=== PATIENT | female | born 1950 | race Caucasian/White ===

== ENCOUNTER 2025-09-23 05:54 | Inpatient (IN) | payer MEDICARE, SELFPAY ==
[2025-09-22 20:21] VITALS: BP 167/91
--- NOTE | 2025-09-22 22:28 | ED.GENMED ---
History of Present Illness
General
Chief Complaint: Abdominal Symptoms
Source: patient
Time Seen by Provider: 09/22/25 22:10
History of Present Illness
History of Present Illness:
75-year-old female presents to the emergency room complaining of abdominal pain. Patient is visiting the area from [place]. Patient has a complicated past medical history chronic pancreatitis which is idiopathic. Patient recently had an
operation at the [facility] to treat her pancreatitis. She is unsure of the exact nature of the procedure. He began having pain early this morning. The pain has increased in severity through the course of the day. It is similar to what she
is experience with pancreatitis in the past. She had multiple episodes of nausea vomiting. Patient also has had significant abdominal surgery including colectomy end ileostomy. She has had abdominal reconstructive surgery in repair of multiple
abdominal wall hernias. She has also had pancreatic stents in the past. Patient has been unable to tolerate any oral intake. No fever or chills. She also recently was advised that she should self catheterize due to urinary retention at times.
She has not received the supplies to start this yet.
Patient takes metformin, pancreatic enzyme, Prilosec, Lyrica and Zoloft.
Phy Exam
Physical Exam
Physical Exam:
General: Awake, Alert, Oriented X3. Appears uncomfortable
Vitals: Mildly tachycardic
Head: Atraumatic
Eyes: Pupils equal, EOMI
Throat: Airway intact, no exudates, dry mucosa
Neck: Trachea midline
Lungs: Clear and equal b/l
Heart: Regular rate, no murmurs
Abd: Soft, diffusely tender but most pronounced in the upper abdomen, ileostomy noted without any output noted in the bag, No pulsatile mass
Neuro: nonfocal
Skin: Warm, dry, no rash
Extremities: pulses equal b/l, no edema
Sepsis
Sepsis Screening
Sepsis Assessment: Severe Sepsis
Sepsis Screening: Lactate >2mmol/L
Sepsis Screen
Sepsis Screen: Severe Sepsis
Date: 09/23/25
Time: 05:34
Course
Orders/Labs/Results
Orders:
Orders
09/22/25 20:26
IV Insert/Care/Rem.- Treatment PRN
09/22/25 22:27
Bladder Scan- Treatment ONCE
HYDROmorphone [Dilaudid] 0.5 mg IV NOW STA
Iohexol [Omnipaque] See Protocol PO NOW STA
Lactated Ringers [Lr] 1,000 ml IV BOLUS
Ondansetron Injectable [Zofran] 4 mg IV NOW STA
09/22/25 22:33
Complete Blood Count/With Diff Urgent
Comprehensive Metabolic Panel Urgent
Lactate Level [Lactic Acid] Urgent
Lipase Urgent
09/23/25
CT Abd/pel W Iv And Oral Contr Urgent
Reason For Exam: abdominal pain, n/v
CR Abdomen - 1 View Urgent
Reason For Exam: LEFT SIDE STENT PLACEMENT
RF Fluoroscopy, C-arm Urgent
09/23/25 01:00
HYDROmorphone [Dilaudid] 0.5 mg IV NOW STA
09/23/25 02:20
Urinalysis Reflex To Culture Urgent
Date Specimen was Collected: 09/23/25
Time Specimen was Collected: 02:03
Urine Microscopic Reflex Cult Urgent
Urine Culture Urgent
BA Source: U
Specimen Description:
Date Specimen was Collected: 09/23/25
Time Specimen was Collected: 02:03
09/23/25 03:23
CefTRIAXone [Rocephin] 2,000 mg IV NOW STA
09/23/25 03:28
Sterile Water [Sterile Water For Injection] 20 ml .ROUTE .STK-MED
09/23/25 03:31
Lactated Ringers [Lr] 1,500 ml IV BOLUS
09/23/25 04:05
Gentamicin Sulfate [Gentamicin] 170 mg 0.9% Sodium Chloride [Nss] 50 ml IV NOW
09/23/25 04:07
Dexamethasone Sod Phosphate [Decadron] 20 mg .ROUTE .STK-MED ONE
Lidocaine 2% Mpf [Xylocaine Mpf 2%] 100 mg .ROUTE .STK-MED ONE
Ondansetron Injectable [Zofran] 4 mg .ROUTE .STK-MED ONE
Propofol [Diprivan] 20 ml .ROUTE .STK-MED
09/23/25 04:09
Lactate Level [Lactic Acid] Urgent
09/23/25 04:10
Sequential Compression Device [Pneumatic Compression Sleeves] As Directed
Type: Knee high
Surgical Procedure As Directed
Surgical Procedure: cysto, left ureteral stenting
Teds [Anti-embolism (CATA) Hose] As Directed
Type: Thigh high
DX Deep Vein Thrombosis Video Routine
09/23/25 04:15
Admit/Transfer Patient As Directed
Co-Sign Provider:
Level of Care: Inpatient admission
Assign to:: IMU- Intermediate Care
Physician / Group: [facility]
Diagnosis: complicated pyelonephritis, infected obstructing stone
Reason for Hospitalization: complicated pyelonephritis, infected obstructing stone
Expected length of stay greater than two midnights?: Yes
ELOS- Estimated Length of Stay in days: 2
I certify the patient meets the requirements for IP care: Yes
PRN Pain Medication Management As Directed
May give lesser potent ordered pain med per pt: Yes
preference::
Protocol:: Medication orders for pain may be administered in a
manner that supports deferring to patient preference
when the pt is:
- Requesting an ordered lesser potent pain medication.
Least to most potent pain medications are defined
as: acetaminophen < NSAID < tramadol < opioids
(morphine, oxycodone, hydromorphone).
- Requesting a lesser dose of the same medication IF
ORDERED.
- Requesting a less intrusive route of administration
if both routes are prescribed by the provider (PO <
IV).
09/23/25 04:16
Code Status As Directed
Resuscitation Status: Full Code
09/23/25 04:43
Fentanyl Citrate/Pf [Sublimaze] 25 mcg IV [id number] PRN
HYDROmorphone [Dilaudid] 0.25 mg IV [id number] PRN
HYDROmorphone [Dilaudid] 0.5 mg IV [id number] PRN
Ondansetron Injectable [Zofran] 4 mg IV PACU-ONCEPRN PRN
Notify MD As Directed
Notify physician if: for SDS patients with known or suspected sleep obstructive sleep apnea, monitor in the
PACU.
Notify MD for any apneic/desaturation episodes
O2 Therapy [RESP] Urgent
Titrate/Wean O2 to maintain O2 sat greater than (%): 92
Special Instructions: -Provide supplemental oxygen to achieve O2 sat of 92% or greater.
-After 15 min, may wean O2 and discontinue if patient is able to maintain O2 sat of 92%
or greater during recovery period.
If patient is a discharge home, without oxygen therapy, notify anestheiologist if
unable to maintain O2 SAT of 92% or greater on room air for MD clearance.
09/23/25 04:45
Normosol (Mult Electrolytes) [Normosol-R/Plasmalyte-A] 1,000 ml IV PER PROTOCOL
09/23/25 04:52
Fentanyl Citrate/Pf [Sublimaze] 100 mcg .ROUTE .[facility]-MED ONE
09/23/25 05:11
Estrella Catheter [Catheter- Indwelling] As Directed
Reason for insertion: I&O's Critical Care
Assess insertion reason daily.Remove if no longer applicable: Yes
09/23/25 Breakfast
Regular
Abnormal Lab Results
09/22/25 09/23/25 09/23/25
22:33 02:20 04:09
WBC 19.8 H 10^3/uL
(4.8-10.8)
Abs Immat Gran (auto) 0.1 H 10^3/uL
(0-0.05)
Absolute Neuts (auto) 17.6 H 10^3/uL
(1.4-6.5)
Absolute Lymphs (auto) 0.9 L 10^3/uL
(1.2-3.4)
Absolute Monos (auto) 1.1 H 10^3/uL
(0.1-0.6)
Neutrophils % 89.1 H %
(42.2-75.2)
Lymphocytes % 4.6 L %
(20.5-51.1)
Sodium 130 L mmol/L
(135-145)
Carbon Dioxide 18 L mmol/L
(22-30)
BUN 31 H mg/dl
(7-17)
Creatinine 1.1 H mg/dL
(0.6-1.0)
Glucose 196 H mg/dl
(70-99)
Lactic Acid 3.1 H mmol/L 2.7 H mmol/L
(0.7-2.0) (0.7-2.0)
Calcium 11.8 H mg/dl
(8.4-10.2)
Ur Occult Blood Reflex 4+ A
(Negative)
Leukocyte Esterase Rfl 1+ A
(Negative)
Urine WBC (Reflex) 60-70 A /HPF
(0-5)
Urine Bacteria (Reflex) Many A
(Negative)
Urine Glucose 1+ A
(Negative)
Urine Albumin (Reflex) 2+ A
(Neg - Trace)
09/22/25 22:33
09/22/25 22:33
Vital Signs
Initial and Last Documented VS:
Initial Vital Signs
Temp Pulse Resp BP Pulse Ox
97.6 F 103 19 167/91 98
09/22/25 20:21 09/22/25 20:21 09/22/25 20:21 09/22/25 20:21 09/22/25 20:21
Last Documented Vital Signs
Temp Pulse Resp BP Pulse Ox
98.4 F 125 18 117/74 94
09/23/25 05:23 09/23/25 05:23 09/23/25 05:23 09/23/25 05:23 09/23/25 05:23
MDM/Problems Addressed
Differential Diagnosis Includes:
Exacerbation of chronic pancreatitis, small bowel obstruction, intra-abdominal abscess, kidney stone
MDM/Problems Addressed:
Patient presents with severe upper abdominal pain. On arrival the patient was afebrile. Source of pain was not abundantly clear particular given her complicated history of pancreatitis and multiple abdominal surgeries. Therefore CT with IV and
oral contrast was ordered. Patient voided shortly after coming back to her room and therefore was not able to provide a urine sample immediately. Labs did show an elevated white count at 19.8. Her CT revealed a large stone at the left UPJ. At
the time these results were available the patient continued to be afebrile. We ultimately straight catheter to obtain urine. At that time she also was beginning to show a increased heart rate and felt warm. Repeat temperature was obtained and she
was found to have a temperature of 101. Urology, Dr. Marte was contacted at this point given the evidence for the patient having a infected stone. Dr. Marte came quickly to the hospital to evaluate the patient. Ultimately decided to
take the patient to the OR for stent placement. Patient was treated with 2 g of Rocephin. She received a sepsis fluid bolus ultimately. This was given in 2 aliquots. The initial liter was given after my evaluation. The next 1500 cc was ordered
when the patient spiked a temperature.
Chronic conditions affecting care: Other (Chronic pancreatitis)
*Radiology
Radiology exam reviewed: radiology read reviewed
*Pulse Oximetry
SaO2: 98
Oxygen Mode of Delivery: Room air
Patient hypoxic: no
*Machinist General Interpretation
Rate: tachycardiac
Interpretation: abnormal
Rhythm: sinus tachycardia
*Critical Care Note
Total Time (30-74mins, 75-104mins- exclusive of procedures): 44 min
comment:
Critical care statement: A total of 44 minutes of critical care time was provided for this patient. This includes management of unstable vital signs, evaluation of the patient at bedside, reviewing the patient's pertinent medical records, discussion
with consultants, review of old EKGs and review of pertinent medical records. This time with separate from time utilized to perform the aforementioned documented procedures
ED Attending Note
-
Portions of this chart may have been created with voice recognition software.� Occasional wrong word or��sound alike� substitutions may have occurred due to the inherent limitations of voice recognition software.
Discharge Plan
Departure
Patient Disposition: Admit
Date of Disposition: 09/23/25
Time of Disposition: 03:33
Admit to: OR
Presentation/result/management discussed w/ accepting MD/DO: Hospitalist
Condition: Serious
Discharge Problem:
Kidney stone on left side, Acute UTI, Sepsis
Referrals:
UNKNOWN - PT DOES,NOT KNOW [Family Provider]
Interventions
Interventions:
*General Assessment Last Done: 09/22/25 22:50
*Neglect/Abuse Screening Last Done: 09/22/25 20:21
*ED COVID-19 Vaccine History Last Done: 09/22/25 22:50
*ED Influenza Vaccine History Last Done: 09/22/25 22:50
[facility] Risk Assessment Tool Last Done: 09/23/25 00:02
*Risk Screen - Suicide (C-SSRS) Last Done: 09/22/25 20:21
*Nursing Disposition Last Done: 09/23/25 04:46
RP-Htulsb-Crflalooyg Assessment Last Done: 09/22/25 23:17
Discharge Date and Time
Discharge Date/Time: 09/23/25 04:47
Print Language: SAUDI ARABIAN
[2025-09-22 22:41] LABS: Hematocrit 43.6 % (37.0-47.0); Hemoglobin 15.3 g/dL (12.0-16.0); Mean Corp Hgb Conc. 35.1 g/dL (33.0-37.0); Mean Corpuscular Volume 83.8 fL (81.0-99.0); Nucleated Red Blood Cells % 0 %; Platelet Count 246 10^3/uL (130-400); Red Cell Dist. Width 12.9 % (11.5-14.5)
[2025-09-22] MEDS: LR 1000 IV (22:43)
[2025-09-22] MEDS: DILAUDID 0.5 MG IV (22:44)
[2025-09-22] MEDS: OMNIPAQUE 50 ML PO (22:45)
[2025-09-22] MEDS: ZOFRAN 4 MG IV (22:45)
[2025-09-22 22:57] VITALS: BMI 29.5
[2025-09-22 23:02] LABS: ALT (SGPT) 26 U/L (0-35); AST (SGOT) 25 U/L (14-36); Albumin 4.3 g/dl (3.5-5.0); Alkaline Phosphatase 52 U/L (38-126); Blood Urea Nitrogen 31 mg/dl (7-17); Calcium 11.8 mg/dl (8.4-10.2); Carbon Dioxide 18 mmol/L (22-30); Chloride 102 mmol/L (98-107); Estimated Creatinine Clearance 49 ml/min; Glucose 196 mg/dl (70-99); Lipase 179 U/L (23-300); Potassium 5.1 mmol/L (3.5-5.1); Sodium 130 mmol/L (135-145); Total Protein 7.6 g/dl (6.3-8.2); eGFR 53.06
[2025-09-23] VITALS (23 sets, daily range): BP systolic 93–153; BP diastolic 45–81; PULSE 114; O2SAT 91; BMI 28.4
[2025-09-23] MEDS: DILAUDID 0.5 MG IV (01:42)
[2025-09-23 03:14] LABS: Urine Character Clear (Clear)
[2025-09-23] MEDS: ROCEPHIN 2000 MG IV (03:32)
--- NOTE | 2025-09-23 04:05 | HPS.HSE ---
Family Physician
-
Family Physician: NOT KNOW UNKNOWN - PT DOES
Chief Complaint
-
Abdominal pain
History of Present Illness
This is a 72-year-old female with past medical history significant for hypertension, rvi-fopaeiw-nheebmnfs diabetes, nephrolithiasis, history of status post cholecystectomy who also reports history of kidney stone extraction and recurrent urinary
tract infections as well chronic urinary retention/incontinence requiring intermittent straight cath presents to the emergency department with acute episode of abdominal pain and was found to be febrile.
Patient is visiting from [place]. Patient reports that she woke up with nausea and abdominal pain yesterday. She initially checked her with home physician who recommended that she go to the Emergency Department as she will be having an
intra-abdominal process such as pancreatitis. Patient did report urinary symptoms. She denied any hematuria. By the time she arrived in the emergency department she was having some chills. She is not on any thinners.
In the emergency department she was febrile to 101.5, blood pressure was 127/70 with a pulse rate of 122 and oxygen saturation of 95% on room air. He has a lactic acid of 3.1, WBC of 19.8 with normal hemoglobin and platelets. Electrolytes are
mostly stable with a sodium of 130 and a bicarb of 18 with BUN/creatinine of 31 and 1.1 and a glucose of 186. UA showed positive leukocyte esterase and WBCs are pending. CT of the abdomen and pelvis shows obstructing left ureteropelvic junction
1.1 x 1 x 0.6 cm calculus with associated moderate left hydronephrosis and delayed nephrogram. Additional nonobstructing bilateral lower pole renal calculi.
Medical History
Past Medical History
Past Medical History: Reports GERD, HTN and NIDDM
Past Surgical History: Reports Cholecystectomy and Urological (Left kidney stone removal)
Social History
Tobacco: Non-smoker
Alcohol: None
Drug: None
Family History
Family History: Not pertinent
Allergies / Home Medications
Allergies reflects when Allergies were last updated in [employer].
Home Medications with original date entered in [employer]
Allergy/Medication List:
Allergies
Allergy/AdvReac Type Severity Reaction Status Date / Time
sulfamethoxazole (From Allergy Rash Verified 09/22/25 20:21
Bactrim)
trimethoprim (From Bactrim) Allergy Rash Verified 09/22/25 20:21
Review of Systems
-
Constitutional: Reports No Symptoms
EENT: Reports No Symptoms
Respiratory: Reports No Symptoms
Cardiac: Reports No Symptoms
Abdomen/GI: Reports Nausea and Pain
: Reports Dysuria and Flank Pain
Musculoskeletal: Reports No Symptoms
Skin: Reports No Symptoms
Neurological: Reports No Symptoms
Endocrine: Reports No Symptoms
Hematologic/Lymphatic: Reports No Symptoms
Psych: Reports No Symptoms
Physical Exam
Vital Signs
Vital Signs
Temp Pulse Resp BP Pulse Ox
101.5 F H 131 22 126/72 94
09/23/25 03:27 09/23/25 04:00 09/23/25 04:00 09/23/25 03:45 09/23/25 04:00
Physical Exam
General: Well Developed, Well Nourished and No Apparent Distress
HEENT: NormoCephalic, Moist mucous membranes and Atraumatic
Respiratory: Clear
Cardiac: S1/S2 and Regular Rhythm; No Murmur or Rub
GI: Soft, Non Tender, Non Distended and Normal Bowel Sounds; No Organomegaly
Rectal: Deferred by Provider
Genito-urinary: Deferred by me
Musculoskeletal: No Clubbing, No Cyanosis and No Edema
Skin: No Rash
Neuro: AO x 3 and Nonfocal/grossly intact
Psych: Calm
Laboratory Results
-
09/22/25 22:33
09/22/25 22:33
Laboratory Results
Lactic Acid 3.1 mmol/L (0.7-2.0) H 09/22/25 22:33
Total Bilirubin 0.6 mg/dl (0.2-1.3) 09/22/25:
AST 25 U/L (14-36) 09/22/25:
ALT 26 U/L (0-35) 09/22/25:
Alkaline Phosphatase 52 U/L (38-126) 09/22/25:
Lipase 179 U/L (23-300) 09/22/25:
Data Reviewed
-
CT Scan: Report Reviewed by me
Lab Data: Labs Reviewed by me
Impression/Plan
-
IMPRESSION:
72-year-old female with history of nephrolithiasis, ozh-pqyyavx-dgslyhmhu diabetes, GERD who presents to emergency department with abdominal pain nausea and flank pain and was found to have a obstructing left UPJ stone that was 1 cm with mild
hydronephrosis, patient found to be septic with fever, pyelonephritis, and elevated lactic acid, tachycardia but not hypotensive at this time.
PLAN:
Complicated pyelonephritis with an infected obstructing left-sided UPJ stone
� Admitted to ICU from OR
� N.p.o. for now
� Continue with IV normal saline for now
� Blood cultures, urine cultures
� Continue with IV cefepime 2 g every 8
� Pain control and antiemetics
� Monitor for patient status post procedure
� Cardiology has been consulted and patient will be taken to the OR at this moment
� Advance diet as tolerated in the morning
Type 2 diabetes
� Patient on metformin, holding metformin for now
� Continue sliding scale for now
GERD
� Continue PPI IV daily
Patient is unclear of her other medications at this time, we will need corroboration in the morning.
DVT prophylaxis�SCDs for now pending procedure, after procedure patient can be placed on Lovenox subcu
CODE STATUS�full code
--- NOTE | 2025-09-23 04:11 | CONS.URO ---
Consultation
-
Date/Time Consultation Performed: 09/23/25 0405
Requesting Provider: ED
Performing Provider: Estuardo
Reason for Consultation: Left ureteral stone, sepsis
Medical History
History of Present Illness
ED note: '75-year-old female presents to the emergency room complaining of abdominal pain. Patient is visiting the area from [place]. Patient has a complicated past medical history chronic pancreatitis which is idiopathic. Patient recently had
an operation at the [facility] to treat her pancreatitis. She is unsure of the exact nature of the procedure. He began having pain early this morning. The pain has increased in severity through the course of the day. It is similar to what
she is experience with pancreatitis in the past. She had multiple episodes of nausea vomiting. Patient also has had significant abdominal surgery including colectomy end ileostomy. She has had abdominal reconstructive surgery in repair of
multiple abdominal wall hernias. She has also had pancreatic stents in the past. Patient has been unable to tolerate any oral intake. No fever or chills. She also recently was advised that she should self catheterize due to urinary retention at
times. '
she reports previous stone hx
Past Medical History
Past Medical History: Other (see ED notes)
Past Surgical History: Other (see ED notes)
Social History
Drug: None
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
Living: Other (convent)
Family History
Family History: Reviewed & Not Pertinent
Allergies/Home Medications
Allergies
Allergy/AdvReac Type Severity Reaction Status Date / Time
sulfamethoxazole (From Allergy Rash Verified 09/22/25 20:21
Bactrim)
trimethoprim (From Bactrim) Allergy Rash Verified 09/22/25 20:21
Physical Exam
Vital Signs
Vital Signs
Temp Pulse Resp BP Pulse Ox
101.5 F H 131 22 126/72 94
09/23/25 03:27 09/23/25 04:00 09/23/25 04:00 09/23/25 03:45 09/23/25 04:00
Lab / Testing Results
Laboratory Results
09/22/25 22:33
09/22/25 22:33
Physical Exam
elderly female on ED gurney
Neuro: Awake and Alert
Psych: Calm
Assessment / Plan
-
left ureteral stone: ~ 11 mm, proximal, obstructing
urosepsis
pt advised to be emergently brought to OR for left ureteral stenting: ' I will need to consult with my home nurse.'
Data Reviewed
-
CT Scan: Image personally visualized and interpreted
Lab Data: Labs Reviewed
Old Records: Reviewed
[2025-09-23] MEDS: LR 1500 IV (04:21)
[2025-09-23 05:01] LABS: Urine Red Blood Cell 0-2 /HPF (0-2); Urine White Cell 60-70 /HPF (0-5)
--- NOTE | 2025-09-23 05:11 | W.IMMPOSTOP ---
Surgical Immed Post Op Note
-
Primary Surgeon: Estuardo
Pre-op Diagnosis: left ureteral stone: ~ 11 mm, proximal, obstructing; urosepsis
Post-op Diagnosis: same
Procedure Performed: cysto, stone dislodgement, left ureteral stenting
Anesthesia Type:gen
Specimen / Cultures: none
Estimated Blood Loss: none
Complications: none
Operative Findings: purulent urine above obstructing left ureteral stone
Left ureteral stent - 6 fr 24 cm
Estrella
[2025-09-23 05:49] LABS: Glucose - Point of Care 163 mg/dl (70-99)
[2025-09-23] MEDS: NSS 1000 IV (05:59)
[2025-09-23 06:33] LABS: Glucose - Point of Care 172 mg/dl (70-99)
--- NOTE | 2025-09-23 06:44 | PTCARENOTE ---
Received pt from OR, drowsy but AAOx3, denies pain and SOB at this time, ST on the monitor, afebrile, BP 120/55, 96% 2L NC, NPO, ashley in place, sister at bedside and call matthews in reach
[2025-09-23 06:53] LABS: Hematocrit 41.3 % (37.0-47.0); Hemoglobin 14.2 g/dL (12.0-16.0); Mean Corp Hgb Conc. 34.4 g/dL (33.0-37.0); Mean Corpuscular Volume 86.0 fL (81.0-99.0); Platelet Count 200 10^3/uL (130-400); Red Cell Dist. Width 13.1 % (11.5-14.5)
[2025-09-23 06:55] LABS: APTT 26.5 Sec (23.4-35.0)
[2025-09-23 07:07] LABS: Blood Urea Nitrogen 25 mg/dl (7-17); Calcium 10.2 mg/dl (8.4-10.2); Carbon Dioxide 20 mmol/L (22-30); Chloride 102 mmol/L (98-107); Estimated Creatinine Clearance 55 ml/min; Glucose 170 mg/dl (70-99); Magnesium 1.3 mg/dl (1.6-2.3); Potassium 4.4 mmol/L (3.5-5.1); Sodium 131 mmol/L (135-145); eGFR 59.49
--- NOTE | 2025-09-23 07:37 | W.PN.HOSP.TC ---
Today's Communication/Plan
-
cont abx
follow urine cx
obtain Blood Cultures if patient spikes another fever
glycemic control
PT/OT eval
Stable for downgrade to Tele
Assessment / Plan
Assessment / Plan
Physical Exam
General: no acute distress, appears comfortable
HEENT: NormoCephalic, Moist mucous membranes and Atraumatic
Respiratory: Clear. Low dose Nasal Cannula
Cardiac: S1/S2 and Regular Rhythm; No Murmur or Rub
GI: Soft, some mild tenderness, Non Distended and Normal Bowel Sounds; No Organomegaly
Musculoskeletal: No Clubbing, No Cyanosis and No Edema
Skin: No Rash
Neuro: AO x 3 conversant coherent
Psych: Calm
72F nephrolithiasis, NIDDM, GERD p/w abd/flank pain nausea and was found to have a obstructing left UPJ stone that was 1 cm with mild hydronephrosis. Septic with fever, pyelonephritis, elevated lactic acid, tachycardia but not hypotensive at this
time.
PLAN:
Complicated pyelonephritis with an infected obstructing left-sided UPJ stone
� Admitted to ICU from OR
� Urology eval appreciated cysto, stone dislodgement, left ureteral stenting 09/23
- Contact Center Rep eval appreciated
� patient since significantly improved, stable for downgrade to Tele
� follow urine culture
� Continue with IV cefepime 2 g every 8
� Pain control and antiemetics
Type 2 diabetes
� Patient on metformin, holding metformin for now following recent contrast use
� Continue sliding scale for now
-Carb controlled diet
Chronic Pancreatic insufficiency
-cont pancreatic enzymes, hold if not eating/NPO
GERD
� cont home PPI BID
DVT prophylaxis�SCDs for now pending procedure, after procedure patient can be placed on Lovenox subcu
CODE STATUS�full code
Discussed with patient, patient's sister KERON Nunez, and Contact Center Rep
I spent a total of 50 minutes with the patient or on the floor. More than 50% of this time involved counseling and coordination of care.
Anticipated Discharge: 24 - 48 hours
Subjective/Interval History
-
Date of Service: September 23, 2025
no acute distress, resting comfortably in bed, overall reports feeling well. Significant improvement in symptoms since procedure. Sister Mayra present during evaluation.
Objective Data
-
Labs:
Laboratory Results
09/22/25 09/23/25
22:33 06:30
WBC 19.8 H 22.6 H
Hgb 15.3 14.2
Hct 43.6 41.3
Plt Count 246 200
APTT 26.5
Sodium 130 L 131 L
Potassium 5.1 4.4
Chloride 102 102
Carbon Dioxide 18 L 20 L
BUN 31 H 25 H
Creatinine 1.1 H 1.0
Glucose 196 H 170 H
Calcium 11.8 H 10.2
Total Bilirubin 0.6
AST 25
ALT 26
Alkaline Phosphatase 52
Vital Signs:
Vital Signs
Temp Pulse Resp BP Pulse Ox
98.7 F 116 18 120/55 96
09/23/25 06:34 09/23/25 06:34 09/23/25 06:34 09/23/25 06:34 09/23/25 06:34
I&O
09/22/25 09/23/25 09/24/25
06:59 06:59 06:59
Intake Total 400 / 400
Output Total 1050 / 1050
Balance -650 / -650
[2025-09-23] MEDS: MAGNESIUM SULFATE 100 IV (08:02)
--- NOTE | 2025-09-23 08:06 | CON.INTV ---
Consultation
Consultation Request
Date/Time Consultation Requested: 09/23/2025
Date/Time Consultation Performed: 09/23/2025
Requesting Provider: Dr. Sabillon
Performing Provider: Dr. Ortiz
Reason for Consultation: Urosepsis status post cystoscopy
Medical History
-
Chief Complaint: Sepsis
History of Present Illness:
Patient is a 75-year-old female with past medical history of ulcerative colitis s/p colectomy end ileostomy, type 2 diabetes, nephrolithiasis, cholecystostomy, Hx multiple abdominal surgeries including pancreatic stenting, chronic pancreatitis,
recurrent UTIs, urinary retention requiring intermittent cath who presented with abdominal pain. Patient is traveling to the area from her home in [facility] and reports that abdominal pain started yesterday associated with nausea and
vomiting. She was also afebrile prior to presentation with her PCP who recommended she come to the emergency department for evaluation. In the ER she was found to be febrile up to 101.5, BP 127/70, pulse 122, O2 sat 95. Labs were notable for
lactic acid up to 3.1, WBCs 19.8, sodium 130, bicarb 18, BUN 31, CR 1.1. UA was for leukocyte esterase and WBCs and CT abdomen pelvis showed obstructing stone at the left ureteropelvic junction associated with hydronephrosis. Patient was given
fluid resuscitation 2.5 L of LR and 2 g of Rocephin, urology was contacted and took patient to the OR for cystoscopy and ureteral stenting which found purulent urine above obstructing stone. This morning patient seen at bedside with family, reports
ongoing lower abdominal pain that is much improved from last night. Otherwise no shortness of breath chest pain headache nausea vomiting fevers or chills. Patient reports recent diagnosis of urinary retention without cause but follows with
urologist at home in [facility].
Past Medical History
Past Medical History: GERD, NIDDM and Other (Ulcerative colitis, chronic pancreatitis, urinary retention, recurrent UTIs, nephrolithiasis)
Past Surgical History: Cholecystectomy, Orthopedic (R TKA) and Other (Hx colectomy end ileostomy, multiple hernia repairs, pancreatic stenting with revisions)
Social History
Tobacco: Non-smoker
Alcohol: None
Drug: None
Family History
Family History: Reviewed & Not Pertinent
Allergies / Home Medications
Allergies
Allergy/AdvReac Type Severity Reaction Status Date / Time
sulfamethoxazole (From Allergy Rash Verified 09/22/25 20:21
Bactrim)
trimethoprim (From Bactrim) Allergy Rash Verified 09/22/25 20:21
Home Medications
�Medication �Instructions �Recorded �Confirmed �Last Taken �Type
alendronate 70 mg tablet (Fosamax) 70 mg PO QWEEK 09/23/25 09/23/25 Unknown History
calcium carbonate 1,000 mg tablet 600 mg PO DAILY 09/23/25 09/23/25 09/21/25 History
cholecalciferol (vitamin D3) 250 250 mcg PO DAILY 09/23/25 09/23/25 09/21/25 History
mcg (10,000 unit) tablet
bajfjm-goearoky-szsfray(pork)10,000-32,000-42,000 4 cap PO QID 09/23/25 09/23/25 09/21/25 History
unit capsule,del rel (Zenpep)
metformin 1,000 mg tablet 1,000 mg PO DAILY 09/23/25 09/23/25 09/21/25 History
multivitamin 1 tab PO DAILY 09/23/25 09/23/25 09/21/25 History
sertraline 50 mg tablet 50 mg PO DAILY 09/23/25 09/23/25 09/21/25 History
Review of Systems
-
History Source: Patient and Family
All other systems: Negative unless noted
Abdomen/GI: Abdominal Pain (Suprapubic)
Vitals / Labs / Diagnostic Testing
Vital Signs
Temp Pulse Resp BP Pulse Ox
98.7 F 116 18 120/55 96
09/23/25 06:34 09/23/25 06:34 09/23/25 06:34 09/23/25 06:34 09/23/25 06:34
Lab Data
09/23/25 06:30
09/23/25 06:30
Laboratory Results
09/23/25
06:30
APTT 26.5
Diagnostic Testing:
Physical Exam
-
HEENT: Normocephalic and Anicteric
Cardiovascular: S1/S2, Regular Rhythm and Other (Tachycardia)
Respiratory: Clear and Non-Labored Respirations
GI: Soft, Non Distended and Tender (Generalized tenderness, 02/08)
Neurology: Awake and Alert
Skin: Warm and Dry
General: Comfortable
Assessment
-
#Neurologic
Pain: 5/10 abdominal
Analgesia: Hydromorphone 0.5 as needed, oxycodone 5 as needed, Tylenol as needed
Mentation: at baseline AAO x 3
Activity: With assistance
#Cardiovascular
Maintain MAP> 65
Pressors: None
QTc: 446
EKG sinus tachy
#Respiratory
O2 requirements:
Sedation:
Home O2: None
Blood gas:
#Gastrointestinal
Diet: Diabetic
Stooling regimen: MiraLAX as needed, bisacodyl as needed, docusate as needed
Tubes: None
Antiemetics: Zofran as needed
GI PPx: Protonix 40 mg twice daily
Ulcerative colitis s/p colectomy ileostomy
Continue to monitor
Chronic pancreatitis
Continue Zenpep
#Renal/
Estrella: ordered
Urine output: Negative 1L overnight
IVF: S/p 2.5 L in ED on NSS at 100
Electrolytes: K>4 Mg>2
Na 131
K 4.4
Mag 1.3, repletion given
Urology following
Recurrent UTIs
Urinary retention
Severe sepsis due to pyelonephritis with obstructive uropathy
#Infectious
WBC 19.8-> 22.6
ABX: Day 2, Cefepime, s/p Rocephin gentamicin
Microbiology: Urine cultures pending
Antipyretics: Tylenol as needed
Severe sepsis due to pyelonephritis with obstructive uropathy
hx Recurrent UTIs
hx Urinary retention
s/p fluid resuscitation, antibiotics, cystoscopy with stone dislodgment
CT scan showing 1 cm stone in the UPJ with hydronephrosis
Recent diagnosis of urinary retention prescribed CIC, has not started
Hx nephrolithiasis, recurrent UTIs
No pressors required
Estrella ordered
-Urine cultures pending
-Blood cultures pending
-Continue cefepime
-Continue supportive care
#Hematologic
DVT PPx: SCDs, consider transition to chemoprophylaxis postprocedure
Hemoglobin: 14.2
PT
INR
PTT
#Endocrine
Maintain euglycemia with goal BG 140�180
Low insulin sliding scale
Type 2 diabetes
A1c 8.0
Hold metformin
Low ISS
#Surgical
S/p cystoscope with stenting and stone removal
Urology following
Dispo: Downgrade to telemetry
CODE STATUS: Full code
[2025-09-23 08:53] LABS: Glycohemoglobin (HgbA1c) 8.0 % (4.0-5.9)
--- NOTE | 2025-09-23 09:00 | PTCARENOTE ---
Received pt @ [facility] of shift. Pt. drowsy, awakens to verbal stim; ox3. ST on monitor. SpO2 96% on 2LNC; weaned to RA and tolerating. Hypoactive BS, abd soft/round/obese/tender. Diet advanced and tolerating. RLQ ileostomy w brown/liq stool. #18F
[address]ley in place draining clear/yellow urine; L ureteral stent. R AC w NSS @ 100mL/hr and Mag rider- see MAR. Pt.'s sister, Mayra, to bedside; assisted w med rec and PMHx. Pt. assisted x 2 w RW OOB to chair; gait steady; generalized weakness;
tolerating position. Pt. instructed on how to report care concerns and call matthews placed w in reach. Family remains @ bedside.
[2025-09-23 09:13] LABS: Glucose - Point of Care 197 mg/dl (70-99)
[2025-09-23] MEDS: MAXIPIME 1000 MG IV ×3 (10:29→21:10)
[2025-09-23] MEDS: NOVOLOG FLEXPEN-LOW RESISTANCE 1 UNITS SC ×2 (10:29→17:44)
[2025-09-23] MEDS: STERILE WATER FOR INJECTION 10 ML IV ×3 (10:29→21:10)
[2025-09-23] MEDS: ZOLOFT 50 MG PO (10:30)
[2025-09-23] MEDS: PROTONIX 40 MG PO ×2 (10:30→20:09)
--- NOTE | 2025-09-23 12:00 | PTCARENOTE ---
Report given to 2S RN and pt. transported via wheelchair on engine monitor w belongings and family to 2106. No further needs from this RN.
[2025-09-23 12:29] LABS: Glucose - Point of Care 229 mg/dl (70-99)
[2025-09-23] MEDS: ZENPEP DELAYED RELEASE CAPSULE 4 CAPSULE PO ×2 (12:41→17:45)
[2025-09-23] MEDS: NOVOLOG FLEXPEN-LOW RESISTANCE 2 UNITS SC (12:42)
--- NOTE | 2025-09-23 15:25 | CM ---
Met with patient and her sister, Mayra at bedside
Local Pharmacy: [facility] @ [address] [place] [address]
Family Physician verified: Mariya Qureshi, [address] [address]; ; NPI #[id number]
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 Currently staying with her sister who lives in [place]. When she is stable for discharge, she will stay at [id number] in the in-law suite; 2 bedrooms; handicap accessible bathroom
PLOF: reported she was independent with personal care; sometimes she used a Cane w/ ambulation
NO SNF or Home Health utilization history
Sister will transport when stable
Plan: Discharge to family home when stable to discharge
[2025-09-23 17:44] LABS: Glucose - Point of Care 174 mg/dl (70-99)
[2025-09-23] MEDS: TYLENOL 650 MG PO (17:50)
[2025-09-23] MEDS: ZENPEP DELAYED RELEASE CAPSULE PO ×2 (21:10→21:15)
[2025-09-23 21:42] LABS: Glucose - Point of Care 136 mg/dl (70-99)
[2025-09-24 03:09] VITALS: BP 119/69
[2025-09-24] MEDS: STERILE WATER FOR INJECTION 10 ML IV ×4 (03:21→21:12)
[2025-09-24] MEDS: MAXIPIME 1000 MG IV ×4 (03:21→21:12)
[2025-09-24 06:13] LABS: Hematocrit 37.0 % (37.0-47.0); Hemoglobin 12.7 g/dL (12.0-16.0); Mean Corp Hgb Conc. 34.3 g/dL (33.0-37.0); Mean Corpuscular Volume 84.3 fL (81.0-99.0); Platelet Count 179 10^3/uL (130-400); Red Cell Dist. Width 13.2 % (11.5-14.5)
[2025-09-24 06:37] LABS: Blood Urea Nitrogen 24 mg/dl (7-17); Calcium 9.9 mg/dl (8.4-10.2); Carbon Dioxide 20 mmol/L (22-30); Chloride 104 mmol/L (98-107); Estimated Creatinine Clearance 55 ml/min; Glucose 166 mg/dl (70-99); Magnesium 2.0 mg/dl (1.6-2.3); Potassium 3.9 mmol/L (3.5-5.1); Sodium 130 mmol/L (135-145); eGFR 59.49
--- NOTE | 2025-09-24 06:58 | W.PN.URO.CBU ---
Today's Communication / Plan
-
continue broad-spectrum abx until micro results permit tailoring
patient will need definitive surgical removal of stone after infection has cleared [10-20 days]
Patient will decide whether she will return to [facility] with Estrella in place: 'I need to consult with my home nurse'
extensive d/w pt regarding stone, sepsis and recommended clinical plan
Assessment / Plan
-
Left ureteral calculus: 11 mm, proximal, obstructing.
Urosepsis.
s/p Cystoscopy with dislodgement of left ureteral stone. Left ureteral stent insertion.
chronic, subtotal urinary retention -- patient was advised to perform CIC by her [facility] urologist: 'but I couldn't do it'
Diagnosis
-
Date of Service: September 24, 2025
-
DIAGNOSES:
Left ureteral calculus: 11 mm, proximal, obstructing.
Urosepsis.
s/p Cystoscopy with dislodgement of left ureteral stone. Left ureteral stent insertion.
Post Op Day: 1
Subjective
-
sitting up comfortable in lounger
Objective
-
Vital Signs
Temp Pulse Resp BP Pulse Ox
99 F 103 16 119/69 92
09/24/25 03:09 09/24/25 03:09 09/24/25 03:09 09/24/25 03:09 09/24/25 03:09
Intake and Output
09/22/25 09/23/25 09/24/25
06:59 06:59 06:59
Intake Total 400 / 525 2400 / 2400
Output Total 1050 / 1050 3050 / 3050
Balance -650 / -525 -650 / -650
Intake:
Oral fluids 1800 / 1800
IV fluids (Total) 400 / 500 500 / 500
nss 400 / 500 500 / 500
IV piggybacks 100 / 100
Output:
Liquid stool amount 300 / 300
Ileostomy 300 / 300
Urine, Estrella 2750 / 2750
Urine, Voided 1050 / 1050
Laboratory Results
09/24/25 06:00
09/24/25 06:00
urine cx: pending
Physical Exam
-
General - well developed, well nourished, no acute distress
Genitalia - Estrella -- romelia urine
[2025-09-24 07:17] LABS: Glucose - Point of Care 159 mg/dl (70-99)
[2025-09-24 07:35] VITALS: BP 104/63
--- NOTE | 2025-09-24 07:38 | W.PN.HOSP.TC ---
Today's Communication/Plan
-
cont abx
follow urine culture results
glycemic control
PT/OT
Assessment / Plan
Assessment / Plan
Physical Exam
General: no acute distress, appears comfortable
HEENT: NormoCephalic, Moist mucous membranes and Atraumatic
Respiratory: Clear. Low dose Nasal Cannula
Cardiac: S1/S2 and Regular Rhythm; No Murmur or Rub
GI: Soft, some mild tenderness, Non Distended and Normal Bowel Sounds, ileostomy present
Musculoskeletal: No Clubbing, No Cyanosis and No Edema
Skin: No Rash
Neuro: AO x 3 conversant coherent
Psych: Calm
72F spinal stenosis nephrolithiasis, NIDDM, GERD hx abdominal reconstructive surgery in repair of multiple abdominal wall hernias colectomy ileostomy p/w abd/flank pain nausea and was found to have a obstructing left UPJ stone that was 1 cm with
mild hydronephrosis. Septic with fever, pyelonephritis, elevated lactic acid, tachycardia but not hypotensive at this time.
PLAN:
Complicated pyelonephritis with an infected obstructing left-sided UPJ stone
� Admitted to ICU from OR
� Urology eval appreciated cysto, stone dislodgement, left ureteral stenting 09/23
- [employer] eval appreciated
� patient since significantly improved, downgraded to Tele
� follow urine culture
� Continue with IV cefepime 1 g Q6
� Pain control and antiemetics
Type 2 diabetes
� Patient on metformin, holding metformin for now following recent contrast use
� Continue sliding scale for now
-Carb controlled diet
Chronic Pancreatic insufficiency
-cont pancreatic enzymes, hold if not eating/NPO
GERD
� cont home PPI BID
Chronic Back Pain Spinal Stenosis
-Bengay-like cream QID
PT/OT appreciated home services
DVT prophylaxis�SCDs
CODE STATUS�full code
Discussed with patient and patient's brother Blake
I spent a total of 45 minutes with the patient or on the floor. More than 50% of this time involved counseling and coordination of care.
Anticipated Discharge: Within 24 hours
Subjective/Interval History
-
Date of Service: September 24, 2025
no acute distress, resting comfortably in bed. Reports some back discomfort from known spinal stenosis. Otherwise reports feeling well. Brother Blake present during evaluation.
Objective Data
-
Labs:
Laboratory Results
09/24/25
06:00
WBC 18.1 H
Hgb 12.7
Hct 37.0
Plt Count 179
Sodium 130 L
Potassium 3.9
Chloride 104
Carbon Dioxide 20 L
BUN 24 H
Creatinine 1.0
Glucose 166 H
Calcium 9.9
Vital Signs:
Vital Signs
Temp Pulse Resp BP Pulse Ox
99 F 103 16 119/69 92
09/24/25 03:09 09/24/25 03:09 09/24/25 03:09 09/24/25 03:09 09/24/25 03:09
I&O
09/23/25 09/24/25 09/25/25
06:59 06:59 06:59
Intake Total 400 / 525 2400 / 2400
Output Total 1050 / 1050 3050 / 3050
Balance -650 / -525 -650 / -650
[2025-09-24] MEDS: VITAMIN D3 (cholecalciferol) 25 MCG PO (08:28)
[2025-09-24] MEDS: NOVOLOG FLEXPEN-LOW RESISTANCE 1 UNITS SC (08:28)
[2025-09-24] MEDS: PROTONIX 40 MG PO ×2 (08:28→21:12)
[2025-09-24] MEDS: OSCAL CAL 500 500 MG PO (08:28)
[2025-09-24] MEDS: ZENPEP DELAYED RELEASE CAPSULE 4 CAPSULE PO ×4 (08:28→21:13)
[2025-09-24] MEDS: THERAGRAN 1 TABLET PO (08:28)
[2025-09-24 09:20] VITALS: BP 94/59; PULSE 105
[2025-09-24] MEDS: SODIUM PHOSPHATE 255 MEQ IV (10:18)
--- NOTE | 2025-09-24 10:31 | CM ---
Chart reviewed and patient's plan is to stay with brother and sister in law at discharge, will follow with patient progress.
Plan; Patient to stay with brother and sister in law.
[2025-09-24] MEDS: ZOLOFT PO (10:53)
[2025-09-24 11:06] VITALS: BP 135/70
[2025-09-24 11:45] LABS: Glucose - Point of Care 216 mg/dl (70-99)
[2025-09-24] MEDS: BenGay-Like 1 APPLIC TOPICAL ×2 (12:30→17:11)
[2025-09-24] MEDS: NOVOLOG FLEXPEN-LOW RESISTANCE 2 UNITS SC ×2 (12:30→17:11)
[2025-09-24 15:05] VITALS: BP 127/64
[2025-09-24 16:36] LABS: Glucose - Point of Care 211 mg/dl (70-99)
--- NOTE | 2025-09-24 19:48 | W.PN.UPDATE ---
Update Note
Progress Note Update
Patient requested ashley to be removed. Okay to be removed by the urologist transportation supervisor and starting void trail.
--- NOTE | 2025-09-24 20:11 | PTCARENOTE ---
Upon chart review noted active order for Ashley catheter per urology. Reported by previous RN that ashley was d/c'd. Telephone call to previous RN to confirm order. TT correspondence sent to this senior medical writer from [facility] on 09/24 1010 --> ok to
remove ashley. Communication sent to JOSE covering house to place order. Nursing medical office supervisor made aware.
[2025-09-24] MEDS: MELATONIN 5 MG PO (21:12)
[2025-09-24] MEDS: ZOLOFT 50 MG PO (21:13)
[2025-09-24 22:03] LABS: Glucose - Point of Care 219 mg/dl (70-99)
[2025-09-24] MEDS: BenGay-Like TOPICAL (23:00)
[2025-09-24 23:10] VITALS: BP 134/69
[2025-09-25] MEDS: MAXIPIME 1000 MG IV ×2 (03:15→09:37)
[2025-09-25] MEDS: STERILE WATER FOR INJECTION 10 ML IV ×2 (03:15→09:37)
[2025-09-25 03:19] VITALS: BP 123/61
[2025-09-25 06:25] LABS: Hematocrit 36.7 % (37.0-47.0); Hemoglobin 12.6 g/dL (12.0-16.0); Mean Corp Hgb Conc. 34.3 g/dL (33.0-37.0); Mean Corpuscular Volume 85.7 fL (81.0-99.0); Platelet Count 178 10^3/uL (130-400); Red Cell Dist. Width 13.0 % (11.5-14.5)
[2025-09-25 06:48] LABS: Blood Urea Nitrogen 20 mg/dl (7-17); Calcium 9.9 mg/dl (8.4-10.2); Carbon Dioxide 22 mmol/L (22-30); Chloride 105 mmol/L (98-107); Estimated Creatinine Clearance 69 ml/min; Glucose 185 mg/dl (70-99); Magnesium 1.7 mg/dl (1.6-2.3); Potassium 3.9 mmol/L (3.5-5.1); Sodium 132 mmol/L (135-145); eGFR > 60.00
[2025-09-25 07:05] VITALS: BP 115/62
--- NOTE | 2025-09-25 07:31 | W.PN.URO.CBU ---
Today's Communication / Plan
-
urologically stable
Assessment / Plan
-
Left ureteral calculus: 11 mm, proximal, obstructing.
Urosepsis.
s/p Cystoscopy with dislodgement of left ureteral stone. Left ureteral stent insertion.
chronic, subtotal urinary retention -- patient was advised to perform CIC by her [facility] urologist: 'but I couldn't do it'
she is stable at this juncture
would rec discharge with antibx for additional 10 days/ pyridium 100mg bid and tramadol for pain
pt should call dr ramos after discharge to set up next surgery
Diagnosis
-
Date of Service: September 25, 2025
-
DIAGNOSES:
Left ureteral calculus: 11 mm, proximal, obstructing.
Urosepsis.
s/p Cystoscopy with dislodgement of left ureteral stone. Left ureteral stent insertion.
Post Op Day: 3
Subjective
-
pt feeling okay
no fevers
wbc down
ucx + for staph
Objective
-
Vital Signs
Temp Pulse Resp BP Pulse Ox
98.6 F 87 17 123/61 95
09/25/25 03:19 09/25/25 03:19 09/25/25 03:19 09/25/25 03:19 09/25/25 03:19
Intake and Output
09/24/25 09/25/25 09/26/25
06:59 06:59 06:59
Intake Total 2400 / 2400 1080 / 1080
Output Total 3050 / 3050 1102 / 1102
Balance -650 / -650 -22 / -22
Intake:
Oral fluids 1800 / 1800 600 / 600
Amount of oral supplement(s) 480 / 480
consumed
IV fluids (Total) 500 / 500
nss 500 / 500
IV piggybacks 100 / 100
Output:
Liquid stool amount 300 / 300 300 / 300
Ileostomy 300 / 300 300 / 300
Urine, Estrella 2750 / 2750 800 / 800
Urine, Voided 2 / 2
Other:
How many times incontinent 1
MODERATE amount urine
Number of approximated SMALL 1
amounts of urine
Number of approximated LARGE 2
amounts of urine
Laboratory Results
09/25/25 05:31
09/25/25 05:31
Physical Exam
-
General - no acute distress
--- NOTE | 2025-09-25 07:34 | W.PN.HOSP.TC ---
Addendum entered and electronically signed by Faye Almeida MD 09/25/25 10:37:
pt prefers oxycodone over tramadol, irritable bowel syndrome was able to tolerate oxy, unsure if she will be able to tolerate Tramadol
oxy prescribed accordingly
Addendum entered and electronically signed by Faye Almeida MD 09/25/25 10:10:
Mild Hypophosphatemia
received IV repletion
counseled pursue diet rich in phosphate (dairy, nuts, eggs, etc)
Original Note:
Today's Communication/Plan
-
discharge
Assessment / Plan
Assessment / Plan
Physical Exam
General: no acute distress, appears comfortable
HEENT: NormoCephalic, Moist mucous membranes and Atraumatic
Respiratory: Clear. Low dose Nasal Cannula
Cardiac: S1/S2 and Regular Rhythm; No Murmur or Rub
GI: Soft, some mild tenderness, Non Distended and Normal Bowel Sounds, ileostomy present
Musculoskeletal: No Clubbing, No Cyanosis and No Edema
Skin: No Rash
Neuro: AO x 3 conversant coherent
Psych: Calm
72F spinal stenosis nephrolithiasis, NIDDM, GERD hx abdominal reconstructive surgery in repair of multiple abdominal wall hernias colectomy ileostomy p/w abd/flank pain nausea and was found to have a obstructing left UPJ stone that was 1 cm with
mild hydronephrosis. Septic with fever, pyelonephritis, elevated lactic acid, tachycardia but not hypotensive at this time.
PLAN:
Complicated pyelonephritis with an infected obstructing left-sided UPJ stone
� Admitted to ICU from OR, patient since significantly improved, downgraded to Tele
� Urology eval appreciated cysto, stone dislodgement, left ureteral stenting 09/23 cleared for discharge 10 days abx pyridium 100 mg BID prn tramadol
- Manager Entry eval appreciated
� follow urine culture
� Continue with IV cefepime 1 g Q6
� Pain control and antiemetics
Type 2 diabetes
� Patient on metformin, holding metformin for now following recent contrast use
� Continue sliding scale for now
-Carb controlled diet
Chronic Pancreatic insufficiency
-cont pancreatic enzymes
GERD
� cont home PPI BID
Chronic Back Pain Spinal Stenosis
-Bengay-like cream QID
PT/OT appreciated home services
DVT prophylaxis�SCDs
CODE STATUS�full code
Medically stable for discharge home with outpatient follow up recommendations.
Total Time Preparing Discharge __40 minutes including examination of the patient, summary of the hospital stay, instructions for continuing care to all relevant caregivers; and preparation of discharge records, prescriptions, and referral
forms if necessary.
Anticipated Discharge: Today
Subjective/Interval History
-
Date of Service: September 25, 2025
Seen and examined at bedside in no acute distress, sitting up comfortably in bed. Overall reports feeling well aside from general fatigue. denies new acute issues. Looking forward to going home.
Objective Data
-
Labs:
Laboratory Results
09/25/25
05:31
WBC 13.9 H
Hgb 12.6
Hct 36.7 L
Plt Count 178
Sodium 132 L
Potassium 3.9
Chloride 105
Carbon Dioxide 22
BUN 20 H
Creatinine 0.8
Glucose 185 H
Calcium 9.9
Vital Signs:
Vital Signs
Temp Pulse Resp BP Pulse Ox
98.6 F 87 17 123/61 95
09/25/25 03:19 09/25/25 03:19 09/25/25 03:19 09/25/25 03:19 09/25/25 03:19
I&O
09/24/25 09/25/25 09/26/25
06:59 06:59 06:59
Intake Total 2400 / 2400 1080 / 1080
Output Total 3050 / 3050 1102 / 1102
Balance -650 / -650 - /
[2025-09-25 08:05] LABS: Glucose - Point of Care 200 mg/dl (70-99)
[2025-09-25] MEDS: PROTONIX 40 MG PO (08:45)
[2025-09-25] MEDS: THERAGRAN 1 TABLET PO (08:45)
[2025-09-25] MEDS: NOVOLOG FLEXPEN-LOW RESISTANCE 2 UNITS SC (08:46)
[2025-09-25] MEDS: BenGay-Like 1 APPLIC TOPICAL (08:46)
[2025-09-25] MEDS: VITAMIN D3 (cholecalciferol) 25 MCG PO (08:46)
[2025-09-25] MEDS: ZENPEP DELAYED RELEASE CAPSULE 4 CAPSULE PO (08:46)
[2025-09-25] MEDS: OSCAL CAL 500 500 MG PO (08:46)
--- NOTE | 2025-09-25 10:35 | W.DCSUMMARY ---
Discharge Summary
Discharge Data
Date of Admission: 09/23/25
Date of Discharge: 09/25/25
-
Pending Results: No
Discharge Plan
-
Patient Disposition: Home (Routine Discharge)
Discharge Diagnosis/Procedures: you had a ureteral stent placed for a obstructing kidney stone Left side
Complicated Urinary Tract infection
Mild Hypophosphatemia
Condition: Fair
Diet: Diabetic, Carb Controlled
Activity: As tolerated and With Walker
Driving Restrictions: As prior to admission
Blood Work: repeat CBC BMP phosphate level with primary care provider in 1 week of discharge.
Wound Care: expect some blood in urine, urinary urgency and some pain with urination
Activity Restrictions/Additional Instructions:
Follow up with primary care provider 1 week of discharge. Call Urology following discharge to schedule next procedure/surgery.
Referrals:
JACKY AYON [Other] - in one week
Harry Marte MD [Active, Urology]
Referral Note: call as soon as you are discharged to arrange next surgery
Prescriptions:
New
amoxicillin-pot clavulanate 875-125 mg Tablet
1 tab PO Q12 10 Days Qty: 20 0RF
phenazopyridine 100 mg Tablet
100 mg PO BID 10 Days Qty: 20 0RF
oxycodone 5 mg Tablet
5 mg PO Q6H PRN (Reason: moderate severe pain) Qty: 10 0RF
Continued
metformin 1,000 mg Tablet
1,000 mg PO DAILY
Zenpep 10,000-32,000 -42,000 unit Capsule,Delayed Release(Dr/Ec)
4 cap PO QID
sertraline 50 mg Tablet
50 mg PO DAILY
alendronate [Fosamax] 70 mg Tablet
70 mg PO QWEEK
multivitamin Tablet
1 tab PO DAILY
calcium carbonate 1,000 mg Tablet
600 mg PO DAILY
melatonin 3 mg Tablet
3 mg PO HS PRN (Reason: for sleep)
ondansetron HCl 4 mg Tablet
4 mg PO Q8H PRN (Reason: for nausea )
acetaminophen [Tylenol] 325 mg Tablet
650 mg PO Q4H PRN (Reason: for pain)
pantoprazole 40 mg tablet,delayed release (DR/EC)
40 mg PO BID
Premarin 0.625 mg/gram Cream
0.3125 mg vaginal WEEKLY
cholecalciferol (vitamin D3) 25 mcg (1,000 unit) Tablet
25 mcg PO DAILY
Discontinued
oxycodone 5 mg Tablet
5 mg PO Q6H PRN (Reason: for pain)
Discharge Orders:
Discharge Patient (As Directed); Ordered 09/25/25
Ordered By: Faye Almeida
Discharge Date and Time
Print Language: MONGOLIAN
[2025-09-25 11:05] VITALS: BP 142/73
== END 2025-09-25 11:31 | disposition home or self-care (01) | DRG 659 ==
LOC: 2 SOUTH 05:54
PROVIDERS: Emergency Medicine; ADMITTING PHYSICIAN Internal Medicine; ATTENDING PHYSICIAN Internal Medicine; CONSULT PHYSICIAN Internal Medicine Critical Care Medicine; CONSULT PHYSICIAN Specialist; EMERGENCY PHYSICIAN Emergency Medicine
PROC: 0T778DZ Dilation of Left Ureter with Intraluminal Device, Via Natural or Artificial Opening Endoscopic (ICD-10-PCS; 2025-09-23)
DX: N13.6 Pyonephrosis (principal); A41.9 Sepsis, unspecified organism; R65.20 Severe sepsis without septic shock; N20.2 Calculus of kidney with calculus of ureter; E87.20 Acidosis, unspecified; K86.1 Other chronic pancreatitis; E83.39 Other disorders of phosphorus metabolism; Z79.84 Long term (current) use of oral hypoglycemic drugs; Z79.83 Long term (current) use of bisphosphonates; I10 Essential (primary) hypertension; Z90.49 Acquired absence of other specified parts of digestive tract; K58.9 Irritable bowel syndrome, unspecified; E11.9 Type 2 diabetes mellitus without complications; K21.9 Gastro-esophageal reflux disease without esophagitis; M48.00 Spinal stenosis, site unspecified; Z87.440 Personal history of urinary (tract) infections; Z87.442 Personal history of urinary calculi; Z88.1 Allergy status to other antibiotic agents; Z88.2 Allergy status to sulfonamides; Z96.651 Presence of right artificial knee joint; Z79.899 Other long term (current) drug therapy
CPT/HCPCS: 71045; 74018; 74177; 76000; 80048; 80053; 81003; 81015; 82962; 83036; 83605; 83690; 83735; 84100; 85025; 85027; 85730; 87086; 87147; 87186; 93005; 96374; 96375; 97116; 97163; 97167; 99291; C2617; Q9967